=== PATIENT | female | born 2000 | race Caucasian/White ===

== ENCOUNTER 2023-06-12 16:17 | Emergency (ER) | payer MEDICAID ==
[~2023-06-12] VITALS: Ht 157.5 cm; Wt 72.6 kg
[2023-06-12 17:05] VITALS: BP 121/75; PULSE 89; RESP 20; TEMP 97; O2SAT 98
[2023-06-12] MEDS ORDERED: BENZ-300 PO (18:34)
[2023-06-12] MEDS ORDERED: PROM118S5 PO (18:34)
[2023-06-12] MEDS ORDERED: IBUP-2213 PO (18:34)
[2023-06-12 18:37] VITALS: BP 122/75; PULSE 89; RESP 20; TEMP 97; O2SAT 98
== END 2023-06-12 18:37 | disposition home or self-care (01) ==
LOC: MED 16:17
DX: U07.1 COVID-19 (principal); Z79.899 Other long term (current) drug therapy; Z79.1 Long term (current) use of non-steroidal anti-inflammatories (NSAID)
CPT/HCPCS: 99283